=== PATIENT | male | born 1955 | race Caucasian/White ===

== ENCOUNTER → 2020-03-06 | Outpatient (CLI) | payer OTHER ==
[~2020-03-06] MED LIST: FLONASE 0.05%50 MCG NARES; KRILL OIL 1,001 EAC1 PO; LISINOPRIL-HCT1 EAC1 PO; OZEMPIC0.25 MG/0. IM; PROAIR HFA8.5 GM INH; UNICOMPLEX M TA1 TA1 PO
[2020-03-06 12:26] VITALS: BP 105/67
--- NOTE | 2020-03-06 13:49 | NUR ---
IN FOR PICC LINE AND 1ST DOSE OF IV ERTAPENEM FOR ESBL RESISTANT UTI. IV TEAM PLACED PICC LINE IN LEFT UPPER ARM. CXR DONE AND CONFIRMED PROPER PLACEMENT OF PICC LINE. ERTAPENEM INFUSED OVER 30 MINUTES AND TOLERATED WELL. [facility] CAME AND GAVE INSTRUCTIONS FOR HOME INFUSIONS. DISMISSED IN STABLE CONDITION.
--- NOTE | 2020-03-06 22:43 | NUR ---
VAT CONSULTED TO PLACED A PICC FOR HOME ABX. A 4FRSLPICC PLACED LUAB. PLEASE SEE NI FOR DETAILS
== END ==
LOC: OPONC 11:02
PROVIDERS: ATTEND Specialist
DX: N39.0 Urinary tract infection, site not specified (principal)
CPT/HCPCS: 27000; 95000